=== PATIENT | female | born 1980 | race Hispanic/Latino ===

== ENCOUNTER 2019-06-01 16:39 | Emergency (ER) | payer SELFPAY ==
[2019-06-01] MEDS ORDERED: Acetaminophen 500 MG TAB ONE (16:53)
[2019-06-01 17:09] LABS: #Neutrophils 2.3 thou/uL (1.40-6.50); %Eosinophils 0.1 % (0.0-10.0); %Lymphocytes 29.5 % (21.0-51.0); %Monocytes 1.3 % (0.0-10.0); %Neutrophils 68.1 % (42.0-75.0); Hemoglobin 11.3 g/dL (12.0-16.0); Mean Corpuscular HGB CONC 30.3 g/dL (32.0-36.0); Mean Corpuscular Hemoglobin 26.7 pg (27.0-31.0); Mean Corpuscular Volume 88.1 fL (78.0-98.0); Mean Platelet Volume 7.1 fL (7.4-10.4); Platelet Count 136 thou/uL (130-400); RBC Distribution Width 13.6 % (11.5-14.5); Red Blood Cell (RBC) Count 4.25 mill/uL (4.20-5.40); White Blood Cell (WBC) Count 3.4 thou/uL (4.8-10.8)
[2019-06-01] MEDS ORDERED: Sodium Chloride 0.9% 1,000 ML ONE ×2 (17:18→17:46)
[2019-06-01 17:21] LABS: ALT (SGPT) 20 U/L (8-55); AST (SGOT) 24 U/L (5-34); Albumin 4.4 g/dL (3.5-5.0); Alkaline Phosphatase 67 U/L (40-150); Anion Gap 23 mmol/L (10-20); BUN (Urea Nitrogen) 5 mg/dL (7.0-18.7); Bilirubin, Total 0.7 mg/dL (0.2-1.2); Calc. Creatinine Clearance 0 mL/min (70-130); Calcium 9.4 mg/dL (7.8-10.44); Carbon Dioxide 13 mmol/L (22-29); Chloride 104 mmol/L (98-107); Estimated GFR-MDRD 87; Globulin 4.1 g/dL (2.4-3.5); Glucose 105 mg/dL (70-105); Potassium 4.3 mmol/L (3.5-5.1); Protein, Total 8.5 g/dL (6.0-8.3); Sodium 136 mmol/L (136-145)
[2019-06-01 17:24] LABS: Acetaminophen Less than 6.0 mcg/mL (10.0-30.0); Alcohol Less than 10 mg/dL (Less than 10); CK (CPK) 56 U/L (29-168); Salicylate Less than 8.0 mg/dL (15.0-30.0)
[2019-06-01 17:48] LABS: HCG, Total Quant 13312.84 mIU/mL (See Ranges)
[2019-06-01 17:53] LABS: Bilirubin Negative (Negative); Blood, Urine Large (Negative); Glucose, Urine (Dipstick) Negative (Negative); Leukocyte Small (Negative); Nitrite Negative (Negative); Protein, Urine (Dipstick) > or equal to 300 mg/dL (Neg-Trace)
[2019-06-01 17:54] LABS: Clarity Hazy (Clear)
[2019-06-01 17:55] LABS: Bacteria/HPF 1+ HPF (None Seen); RBC/HPF Greater than 50 HPF (0-3); Squamous Epithelial 0-3 HPF (0-3)
[2019-06-01 17:56] LABS: INR-International Normal Ratio 1.5
[2019-06-01 17:57] LABS: PTT 38.6 SEC (22.9-36.1)
[2019-06-01] MEDS ORDERED: Sodium Chloride 0.9% 100 ML ONE (17:59)
[2019-06-01] MEDS ORDERED: Piperacillin/Tazobactam 4.5 GM VIAL ONE (17:59)
[2019-06-01 18:02] LABS: Amphetamine Not Detected (NotDetected); Barbiturates Screen Not Detected (NotDetected); Benzodiazepine Screen Not Detected (NotDetected); Cocaine Metabolite Screen Not Detected (NotDetected); Medtox Control Line Valid? VALID (VALID); Methadone Not Detected (NotDetected); Methamphetamine Not Detected (NotDetected); Opiate Screen Not Detected (NotDetected); Oxycodone Screen Not Detected (NotDetected); Phencyclidine (PCP) Not Detected (NotDetected); THC/Cannabinoid Screen Not Detected (NotDetected); Tricyclic Screen Not Detected (NotDetected)
[2019-06-01 18:07] LABS: Thyroid Stimulating Hormone 0.5463 uIU/mL (0.35-4.94)
[2019-06-01] MEDS ORDERED: metroNIDAZOLE 500 MG/100 ML BAG ONE (18:28)
== END 2019-06-01 18:34 | disposition short-term general hospital (02) ==
LOC: NAV ERS 16:39 → EDBD 16:39 → NAV ERS 18:34
DX: O98.811 Other maternal infectious and parasitic diseases complicating pregnancy, first trimester (principal); A41.9 Sepsis, unspecified organism; O99.89 Other specified diseases and conditions complicating pregnancy, childbirth and the puerperium; R10.9 Unspecified abdominal pain; R94.31 Abnormal electrocardiogram [ECG] [EKG]; Z3A.01 Less than 8 weeks gestation of pregnancy
CPT/HCPCS: 80053; 80306; 80307; 81003; 81015; 82550; 83605; 84443; 84484; 84702; 85025; 85610; 85730; 86900; 86901; 87040; 87149; 93005; 96360; 96361; 96365; J2543; J3490; J7050